=== PATIENT | male | born 1975 | race African-American/Black ===

== ENCOUNTER 2021-06-27 15:09 | Outpatient (CLI) | payer BC ==
[2021-06-27 15:33] LABS: PLATELET COUNT 232 K/uL (142-355)
[2021-06-27 16:38] LABS: POTASSIUM 3.7 mmol/L (3.6-5.2)
== END 2021-06-27 20:02 | disposition home or self-care (01) ==
LOC: LABW 15:09
PROVIDERS: ATTEND Nurse Practitioner
DX: E34.9 Endocrine disorder, unspecified (principal); E29.1 Testicular hypofunction; R41.3 Other amnesia; R68.82 Decreased libido; Z12.5 Encounter for screening for malignant neoplasm of prostate; E03.9 Hypothyroidism, unspecified; E55.9 Vitamin D deficiency, unspecified; D51.8 Other vitamin B12 deficiency anemias; E61.2 Magnesium deficiency; F41.8 Other specified anxiety disorders; G47.00 Insomnia, unspecified; D64.9 Anemia, unspecified; R53.83 Other fatigue
CPT/HCPCS: 36415; 80053; 80061; 82306; 82607; 82670; 82728; 83036; 83540; 83550; 83735; 84153; 84403; 84443; 84481; 85027